=== PATIENT | male | born 1980 | race Caucasian/White ===

== ENCOUNTER → 2016-05-26 | Outpatient (CLI) | payer OTHER ==
--- NOTE | 2016-05-26 10:16 | REP ---
RIGHT INDEX FINGER SERIES: Four views. HISTORY: Laceration question foreign body. FINDINGS: There is diffuse soft tissue swelling. No soft tissue gas is seen. No opaque foreign body is seen. No fracture noted. IMPRESSION: Diffuse soft tissue swelling. No fracture or opaque foreign body seen. Signed by Gianni Parker MD 05/26/2016 10:55 A
== END | disposition home or self-care (01) ==
LOC: M ADAMS 09:43
PROVIDERS: ATTEND Physician Assistant
DX: S61.210D Laceration without foreign body of right index finger without damage to nail, subsequent encounter (principal); M79.89 Other specified soft tissue disorders; X58.XXXD Exposure to other specified factors, subsequent encounter; Y92.9 Unspecified place or not applicable; Y93.9 Activity, unspecified; Y99.9 Unspecified external cause status

== ENCOUNTER → 2023-08-02 | Outpatient (CLI) | payer OTHER | LOC: M RAD 08:08 | PROVIDERS: ATTEND Orthopaedic Surgery | DX: M19.012 Primary osteoarthritis, left shoulder (principal); S43.432A Superior glenoid labrum lesion of left shoulder, initial encounter; Y93.9 Activity, unspecified; Y92.9 Unspecified place or not applicable ==

== ENCOUNTER → 2023-10-18 | Outpatient (CLI) | payer OTHER | LOC: M RAD 10:26 | PROVIDERS: ATTEND Internal Medicine Cardiovascular Disease | DX: R07.2 Precordial pain (principal) ==